=== PATIENT | female | born 1950 | race Caucasian/White ===

== ENCOUNTER 2016-10-09 12:29 | Emergency (ER) | payer MEDICARE, OTHER ==
--- NOTE | 2016-11-07 08:19 | ER ---
ADMIT: 10/09/2016 RM/LOC: ER [facility] MR#: [id number] [address] [id number] JACEY CRABTREE [address] [place], [place] [id number] Emergency Room Report SEX: F AGE: 66 : 1950 DATE: 10/09/2016 ADDENDUM: CHIEF COMPLAINT: Leg pain. HISTORY OF PRESENT ILLNESS: This is a 66-year-old, who had a renal stent and lithotripsy placed. She has been feeling actually pretty good until this morning. She started having extreme pain, so she presents to the ER. She rates her pain at a 7/10. REVIEW OF SYSTEMS: CONSTITUTIONAL: Denies any fevers, chills, or sweats. CARDIOVASCULAR AND RESPIRATORY: Denies any chest pain or shortness of breath. GASTROINTESTINAL AND GENITOURINARY: Denies any nausea, vomiting, or diarrhea. Just has this flank pain. All systems otherwise negative. PHYSICAL EXAMINATION: VITAL SIGNS: Blood pressure is 166/74, pulse is 72, respirations 18, temperature is 98.0, tympanic, saturation of oxygen is 100% on room air. GENERAL APPEARANCE: Mild distress but alert. HEENT: Pharynx is moist. No tonsillar swelling or exudate. HEART: Regular rate and rhythm. LUNGS: CTA bilateral. ABDOMEN: Soft, nontender. SKIN: Normal color, warm and dry. BACK: She does have some CVA tenderness on her left flank. COURSE IN THE EMERGENCY ROOM: She was given Toradol here in the emergency room which actually took her pain away. Her urine showed 2+ blood. Her chemistries were normal with a creatinine of 0.8. Her KUB, left ureteral stent is in place but no evidence of urolithiasis. I did discharge her home. I spoke with Dr. Dooley about following up in the clinic. She did already have stents removed Wednesday and was thought she had the stent placed but she wanted to follow up with Dr. Dooley to do here in [place]. We did make an appointment with them, Dr. Dooley, and she followed up with them. CLINICAL IMPRESSION: Bladder irritation secondary to renal stent. SHAYY Galloway / Damion Singleton MD / renu JOB #: [id number] CC: Damion Singleton MD, Attending Physician Bentley Laws MD, Family Physician
== END 2016-10-09 15:57 | disposition home or self-care (01) ==
LOC: ER 12:29
DX: T83.89XA Other specified complication of genitourinary prosthetic devices, implants and grafts, initial encounter (principal); Z98.1 Arthrodesis status; Z90.710 Acquired absence of both cervix and uterus